=== PATIENT | female | born 1995 | race Hispanic/Latino ===

== ENCOUNTER 2023-11-05 04:07 | Inpatient (IN) | payer OTHER ==
[~2023-11-05] VITALS: Ht 154.9 cm; Wt 90.4 kg
[~2023-11-05 04:07] MED LIST: augmentin PO
[2023-11-05 04:29] LABS: APPEARANCE,URINE CLEAR (CLEAR); BILIRUBIN,URINE NEGATIVE (NEGATIVE); COLOR,URINE YELLOW (YELLOW); GLUCOSE, URINE (UA) NEGATIVE (NEGATIVE); HCG,QUALITATIVE URINE NEGATIVE (NEGATIVE); KETONES,URINE NEGATIVE (NEGATIVE); LEUKOCYTE ESTERASE ,URINE 75 Leu/uL (NEGATIVE); NITRATE,URINE NEGATIVE (NEGATIVE); PH,URINE 5.5 (5.0-8.0); PROTEIN,URINE 20 mg/dL (NEGATIVE); UROBILINOGEN,URINE 0.2 mg/dL (0.2-1.0)
[2023-11-05 04:31] LABS: ADD UA MICROSCOPIC YES
[2023-11-05 04:33] LABS: MUCUS,URINE FEW LPF (None Seen); RBC,URINE 0-1 /HPF (0-1); SQUAMOUS EPITHELIAL CELL,UR MOD /HPF (0-2)
[2023-11-05 04:33] LABS: BASOPHILS # (AUTO) 0.05 K/uL (0.00-0.20); BASOPHILS % (AUTO) 0.5 % (0.0-5.0); EOSINOPHILS # (AUTO) 0.46 K/uL (0.00-0.70); EOSINOPHILS % (AUTO) 4.4 % (0.0-8.0); HEMATOCRIT 31.5 % (36-48); IMMATURE GRANULOCYTE ABSOLUTE 0.04 K/uL (0-1); LYMPHOCYTES % (AUTO) 19.4 % (21.0-51.0); MEAN CORPUSCULAR HGB CONC 33.7 g/dL (32.0-36.0); MEAN CORPUSCULAR VOLUME 86.3 fL (79-99); NEUTROPHILS # (AUTO) 6.8 K/uL (1.8-7.7); NEUTROPHILS % (AUTO) 65.3 % (40.0-77.0); PLATELET COUNT (AUTO) 268 K/uL (130-400); RED BLOOD CELL COUNT(AUTO) 3.65 MIL/uL (4.00-5.50); RED CELL DISTRIBUTION WIDTH 12.8 % (11.0-15.5); WHITE BLOOD COUNT (AUTO) 10.4 K/uL (4.8-10.8)
[2023-11-05 04:42] LABS: CREATININE 0.6 mg/dL (0.5-1.5); POTASSIUM 3.8 mmol/L (3.5-5.1)
[2023-11-05 04:46] LABS: ALBUMIN 3.1 g/dL (3.5-5.0); BILIRUBIN,TOTAL 0.2 mg/dL (0.2-1.0); TOTAL PROTEIN, SERUM 7.8 g/dL (6.0-8.3)
[2023-11-05] MEDS: ONDANSETRON 4MG INJ IVP ONE (04:58)
[2023-11-05] MEDS: MORPHINE 2 MG SYG IVP ONE (04:58)
[2023-11-05] MEDS ORDERED: IOHEXOL-350 75 ML VIAL IV ONE (05:41)
[2023-11-05] MEDS: PHENAZOPYRIDINE HCL 200 MG TABLET PO ONE (08:49)
[2023-11-05] MEDS: 0.9%NACL 1000ML 1,000 ML IV ONE (08:49)
[2023-11-05] MEDS: CEFTRIAXONE 2GM VIAL IVPB ONE (08:49)
[2023-11-05] MEDS ORDERED: ACETAMINOPHEN 500 MG TABLET PO PRN (10:00)
[2023-11-05] MEDS ORDERED: 0.9%NACL 50ML IV SCH (10:00)
[2023-11-05] MEDS: 0.9%NACL 1000ML 1,000 ML IV SCH (10:27)
[2023-11-05 11:20] LABS: THYROID STIMULATING HORMONE 7.62 uIU/mL (0.36-3.74)
[2023-11-05 11:27] LABS: INR 0.99 (0.85-1.15); PROTHROMBIN TIME 11.5 SEC (9.6-11.6)
[2023-11-05 11:28] LABS: PARTIAL THROMBOPLASTIN TIME 31.3 SEC (26.3-35.5)
[2023-11-05 11:32] LABS: HEMOGLOBIN A1C 5.2 % (4.0-6.0)
[2023-11-05] MEDS ORDERED: KETOROLAC 15MG/ML VIAL (15MG/ML) IM PRN (14:00)
[2023-11-05] MEDS: MORPHINE 2 MG SYG IVP PRN (14:27)
[2023-11-05] MEDS: ONDANSETRON 4MG INJ IVP PRN (14:27)
[2023-11-05 16:30] VITALS: BP 139/77; PULSE 79; RESP 18
[2023-11-05] MEDS: ZOSYN 3.375GM +NS 50ML IVPB SCH (16:47)
[2023-11-05 19:00] VITALS: BP 134/86; PULSE 80; RESP 16
[2023-11-05 20:00] VITALS: O2SAT 96
[2023-11-05] MEDS: FAMOTIDINE 20MG VIAL IV SCH (20:30)
[2023-11-05 23:48] VITALS: BP 110/62; PULSE 65; RESP 16
[2023-11-06] VITALS (7 sets, daily range): BP systolic 114–140; BP diastolic 72–85; PULSE 75–84; RESP 16; O2SAT 95–96
[2023-11-06 04:47] LABS: BASOPHILS # (AUTO) 0.04 K/uL (0.00-0.20); BASOPHILS % (AUTO) 0.7 % (0.0-5.0); EOSINOPHILS # (AUTO) 0.45 K/uL (0.00-0.70); EOSINOPHILS % (AUTO) 8.3 % (0.0-8.0); HEMATOCRIT 29.8 % (36-48); IMMATURE GRANULOCYTE ABSOLUTE 0.01 K/uL (0-1); LYMPHOCYTES # (AUTO) 1.8 K/uL (1.0-4.8); LYMPHOCYTES % (AUTO) 33.6 % (21.0-51.0); MEAN CORPUSCULAR HEMOGLOBIN 28.2 pg (27.0-33.0); MEAN CORPUSCULAR HGB CONC 32.2 g/dL (32.0-36.0); MEAN CORPUSCULAR VOLUME 87.6 fL (79-99); MONOCYTES # (AUTO) 0.4 K/uL (0.1-1.0); MONOCYTES % (AUTO) 7.7 % (3.0-13.0); NEUTROPHILS # (AUTO) 2.7 K/uL (1.8-7.7); NEUTROPHILS % (AUTO) 49.5 % (40.0-77.0); PLATELET COUNT (AUTO) 238 K/uL (130-400); RED CELL DISTRIBUTION WIDTH 12.8 % (11.0-15.5); WHITE BLOOD COUNT (AUTO) 5.4 K/uL (4.8-10.8)
[2023-11-06 04:50] LABS: CREATININE 0.7 mg/dL (0.5-1.5); MAGNESIUM 1.9 mg/dL (1.80-2.40); POTASSIUM 3.5 mmol/L (3.5-5.1)
[2023-11-06 04:53] LABS: PROTHROMBIN TIME 11.6 SEC (9.6-11.6)
[2023-11-06 04:54] LABS: PARTIAL THROMBOPLASTIN TIME 31.4 SEC (26.3-35.5)
[2023-11-06] MEDS: KETOROLAC 15MG/ML VIAL (15MG/ML) IV PRN (21:07)
[2023-11-07] VITALS (9 sets, daily range): BP systolic 116–152; BP diastolic 65–88; PULSE 67–83; RESP 16–19; O2SAT 95–97
[2023-11-07 04:56] LABS: BASOPHILS # (AUTO) 0.05 K/uL (0.00-0.20); BASOPHILS % (AUTO) 1.2 % (0.0-5.0); EOSINOPHILS # (AUTO) 0.52 K/uL (0.00-0.70); EOSINOPHILS % (AUTO) 12.3 % (0.0-8.0); HEMATOCRIT 29.3 % (36-48); IMMATURE GRANULOCYTE ABSOLUTE 0.01 K/uL (0-1); LYMPHOCYTES # (AUTO) 1.8 K/uL (1.0-4.8); LYMPHOCYTES % (AUTO) 42.8 % (21.0-51.0); MEAN CORPUSCULAR HEMOGLOBIN 28.4 pg (27.0-33.0); MEAN CORPUSCULAR HGB CONC 33.1 g/dL (32.0-36.0); MEAN CORPUSCULAR VOLUME 85.7 fL (79-99); MONOCYTES # (AUTO) 0.4 K/uL (0.1-1.0); MONOCYTES % (AUTO) 9.9 % (3.0-13.0); NEUTROPHILS # (AUTO) 1.4 K/uL (1.8-7.7); NEUTROPHILS % (AUTO) 33.6 % (40.0-77.0); PLATELET COUNT (AUTO) 251 K/uL (130-400); RED BLOOD CELL COUNT(AUTO) 3.42 MIL/uL (4.00-5.50); RED CELL DISTRIBUTION WIDTH 12.7 % (11.0-15.5); WHITE BLOOD COUNT (AUTO) 4.2 K/uL (4.8-10.8)
[2023-11-07 05:11] LABS: % IRON SATURATION 9.3 % (22-44)
[2023-11-07 05:34] LABS: ALBUMIN 2.6 g/dL (3.5-5.0); BILIRUBIN,TOTAL 0.2 mg/dL (0.2-1.0); CREATININE 0.7 mg/dL (0.5-1.5); POTASSIUM 3.7 mmol/L (3.5-5.1); TOTAL PROTEIN, SERUM 6.8 g/dL (6.0-8.3)
[2023-11-07] MEDS: PANTOPRAZOLE 40 MG/VIAL IVP SCH (07:49)
[2023-11-07] MEDS ORDERED: ACETAMINOPHEN 500 MG TABLET PO PRN (11:30)
[2023-11-08 04:00] VITALS: BP 113/71; PULSE 70; RESP 19
[2023-11-08 05:11] LABS: BASOPHILS # (AUTO) 0.05 K/uL (0.00-0.20); BASOPHILS % (AUTO) 0.9 % (0.0-5.0); EOSINOPHILS # (AUTO) 0.65 K/uL (0.00-0.70); EOSINOPHILS % (AUTO) 12.3 % (0.0-8.0); HEMATOCRIT 33.6 % (36-48); IMMATURE GRANULOCYTE ABSOLUTE 0.01 K/uL (0-1); LYMPHOCYTES % (AUTO) 37.2 % (21.0-51.0); MEAN CORPUSCULAR HEMOGLOBIN 27.9 pg (27.0-33.0); MEAN CORPUSCULAR HGB CONC 31.5 g/dL (32.0-36.0); MEAN CORPUSCULAR VOLUME 88.4 fL (79-99); MONOCYTES # (AUTO) 0.4 K/uL (0.1-1.0); MONOCYTES % (AUTO) 6.8 % (3.0-13.0); NEUTROPHILS # (AUTO) 2.3 K/uL (1.8-7.7); NEUTROPHILS % (AUTO) 42.6 % (40.0-77.0); PLATELET COUNT (AUTO) 274 K/uL (130-400); RED CELL DISTRIBUTION WIDTH 12.5 % (11.0-15.5); WHITE BLOOD COUNT (AUTO) 5.3 K/uL (4.8-10.8)
[2023-11-08 05:19] LABS: CREATININE 0.8 mg/dL (0.5-1.5); POTASSIUM 3.9 mmol/L (3.5-5.1)
[2023-11-08 08:00] VITALS: BP 139/85; PULSE 77; RESP 20; O2SAT 97
[2023-11-08 12:00] VITALS: BP 147/80; PULSE 77; RESP 20
[2023-11-08] MEDS ORDERED: LEVO750T39 PO (12:25)
== END 2023-11-08 16:20 | disposition home or self-care (01) | DRG 856 ==
LOC: EDH 04:07 → EDHIP 04:08 → UNDOADMIN 09:52 → 3DH 16:17
PROVIDERS: ADMIT Hospitalist; ATTEND Hospitalist
PROC: 0WJG4ZZ Inspection of Peritoneal Cavity, Percutaneous Endoscopic Approach (ICD-10-PCS; principal; 2023-11-06)
DX: T81.43XA Infection following a procedure, organ and space surgical site, initial encounter (principal); K65.1 Peritoneal abscess; N39.0 Urinary tract infection, site not specified; D64.9 Anemia, unspecified; E66.9 Obesity, unspecified; Y83.8 Other surgical procedures as the cause of abnormal reaction of the patient, or of later complication, without mention of misadventure at the time of the procedure; Y92.89 Other specified places as the place of occurrence of the external cause; Z90.49 Acquired absence of other specified parts of digestive tract; Z68.39 Body mass index [BMI] 39.0-39.9, adult; Z79.899 Other long term (current) drug therapy
CPT/HCPCS: 10030; 36415; 74177; 76705; 80048; 80053; 81001; 81025; 83036; 83540; 83550; 83605; 83690; 83735; 84145; 84443; 85025; 85610; 85651; 85730; 86140; 87040; 87070; 87076; 87077; 87088; 87186; C9113; G0378; J0696; J1885; J2270; J2405; J2543; J3490; Q9967